=== PATIENT | male | born 2000 | race Caucasian/White ===

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

== ENCOUNTER 2018-03-09 14:36 | Emergency (ER) | payer OTHER ==
--- NOTE | 2018-03-09 15:45 | UC ---
Throat Pain/Nasal Giorgi HPI - HPI Summary HPI Summary: 17 yo male presents with throat pain, intermittent times of difficulty breathing , and sensation of food getting "stuck" and subsequent vomiting for the past week. He also reports fevers and 6/10 pain and a new headache. He cannot tolerate his salvia and has been spitting in a cup. Denies chest pain, abdominal pain. - History of Current Complaint Chief Complaint: UCGeneralIllness Stated Complaint: RASH Time Seen by Provider: 03/09/18 15:11 Hx Obtained From: Patient Onset/Duration: Gradual Onset Severity: Moderate Pain Intensity: 7 Pain Scale Used: 0-10 Numeric - Allergies/Home Medications Allergies/Adverse Reactions: Allergies Allergy/AdvReac Type Severity Reaction Status Date / Time No Known Allergies Allergy Verified 03/09/18 15:08 Home Medications: Home Medications Albuterol HFA INHALER* [Ventolin HFA Inhaler*] 2 puff INH Q4H PRN 03/09/18 [ History Confirmed 03/09/18] PMH/Surg Hx/FS Hx/Imm Hx Respiratory History: Asthma - Surgical History Surgical History: Yes Surgery Procedure, Year, and Place: T & A, appendectomy @ 6 years of age. skin grafts for "severe linares to feet" - Family History Known Family History: Positive: Cardiac Disease - father with WPW, Diabetes - Social History Lives: With Family Alcohol Use: None Substance Use Type: Marijuana Substance Use Comment - Amount & Last Used: "once in a while, but I don't go overboard with that." Smoking Status (MU): Never Smoked Tobacco - Immunization History Most Recent Influenza Vaccination: unsure Most Recent Pneumonia Vaccination: none Vaccination Up to Date: Yes Review of Systems Constitutional: Fever Skin: Negative Eyes: Negative ENT: Sore Throat Respiratory: Other - trouble breathing Cardiovascular: Negative Gastrointestinal: Vomiting, Other - dysphagia Genitourinary: Negative Neurovascular: Negative Neurological: Headache Psychological: Negative All Other Systems Reviewed And Are Negative: Yes Physical Exam - Summary Physical Exam Summary: GENERAL: Mild pain distress. Spitting in a cup and dry heaving intermittently. SKIN: No rashes, sores, lesions, or open wounds. HEENT: Head: AT/NC Eyes: EOM intact. Conjunctiva clear without inflammation or discharge. Ears: Hearing grossly normal. TMs intact, no bulging, erythema, or edema. Nose: Nasal mucosa pink and moist. NTTP maxillary and frontal sinus. Throat: Posterior oropharynx without exudates, erythema, or tonsillar enlargement. Uvula midline. NECK: FROM. Moderate TTP anterior neck with no appreciable LAD. CHEST: CTAB. No r/r/w. No accessory muscle use. Breathing comfortably CV: tachycardia Pulses intact. Brisk cap refill. ABDOMEN: Soft. NTTP. No distention or guarding. No organomegaly. No CVA tenderness. Bowel sounds present NEURO: Alert. PSYCH: Age appropriate behavior. Triage Information Reviewed: Yes Vital Signs: Initial Vital Signs Temp 99.0 F 03/09/18 15:03 Pulse 99 03/09/18 15:03 Resp 16 03/09/18 15:03 BP 114/70 03/09/18 15:03 Pulse Ox 100 03/09/18 15:03 Vital Signs Reviewed: Yes Throat Pain/Nasal Course/Dx - Course Course Of Treatment: Lateral neck XR: IMPRESSION: NORMAL STUDY. I spoke to Dr. Murrieta regarding this pt and we agreed that there is a suspicion for epiglottis or soft tissue neck infection. In the clinical course an IV was attempted x4 by the nursing staff and was unable to be obtain, therefore the antibiotics, streoids, and NS were not given. Pt was transferred to [facility] via ambulance and left in stable condition. I spoke and gave report to Dr. Ramirez in the ED regarding this pt. - Differential Dx/Diagnosis Provider Diagnoses: Dysphagia. Neck pain. Headache. Fever Discharge - Sign-Out/Discharge Documenting (check all that apply): Patient Departure - Discharge Plan Condition: Stable Disposition: TRANS HIGHER LVL OF CARE FAC Referrals: Garry Womack MD [Primary Care Provider] - - Billing Disposition and Condition Condition: STABLE Disposition: Trans Higher Lvl of Care Fac
[2018-03-09] MEDS ORDERED: NS 0.9% 1000 ML* 1,000 ML IV ONE (16:20)
--- NOTE | 2018-03-09 16:20 | RAD ---
INDICATION: Neck pain COMPARISON: None TECHNIQUE: A two-view soft tissue neck examination was performed FINDINGS: The osseous structures appear normal. The airways widely patent. The upper clivus and soft tissue elements about the neck are normal. IMPRESSION: NORMAL STUDY.
[2018-03-09] MEDS ORDERED: Dexamethasone IV* 4 MG/ML 5 ML VIAL (20 MG) IVPB ONE (16:21)
[2018-03-09] MEDS ORDERED: cefTRIAXone(*) 1 GM in NS 0.9% 50 ML* 50 ML IVPB ONE (16:22)
[2018-03-09 16:51] VITALS: BP 129/73
== END 2018-03-09 17:04 | disposition short-term general hospital (02) ==
LOC: UCEAST 14:36
DX: R13.10 Dysphagia, unspecified (principal); M54.2 Cervicalgia; R51 Headache; R50.9 Fever, unspecified; J45.909 Unspecified asthma, uncomplicated; Z82.49 Family history of ischemic heart disease and other diseases of the circulatory system
CPT/HCPCS: 70360; 99213; G0463; J0696; J1100

== ENCOUNTER 2018-03-09 17:26 | Emergency (ER) | payer OTHER ==
[2018-03-09] MEDS ORDERED: Ketorolac INJ* 30 MG/ML 1 ML VIAL IV PUSH ONE (20:46)
[2018-03-09] MEDS: NS 0.9% 1000 ML* 3,000 ML IV ONE ×3 (21:03→23:14)
--- NOTE | 2018-03-09 21:13 | ED ---
Throat Pain/Nasal Congestion - HPI Summary HPI Summary: This is kirit Castro documenting for attending Cachorro Whyte MD. This patient is a 17 year old M presenting to [facility] upon referral from [facility] with a chief complaint of sore throat since 1 week ago. The patient rates the pain 7/10 in severity. Symptoms aggravated by nothing. Symptoms alleviated by nothing. Patient reports headache, decreased appetite, decreased fluid intake, chills, pain to swallow, and dark yellow phlegm. Patient denies rash. The patient reports that he had a CXR taken at [facility]. - History of Current Complaint Chief Complaint: EDGeneral Time Seen by Provider: 03/09/18 20:39 Hx Obtained From: Patient Onset/Duration: Gradual Onset, Lasting Weeks - 1 week, Still Present Severity: Moderate Associated Signs And Symptoms: Positive: Dysphagia Cough: Sputum Appears - dark yellow - Allergies/Home Medications Allergies/Adverse Reactions: Allergies Allergy/AdvReac Type Severity Reaction Status Date / Time No Known Allergies Allergy Verified 03/09/18 15:08 PMH/Surg Hx/FS Hx/Imm Hx Endocrine/Hematology History: Denies: Hx Diabetes, Hx Thyroid Disease Cardiovascular History: Reports: Hx Syncope Denies: Hx Hypertension Respiratory History: Reports: Hx Asthma - with rescue inhaler Denies: Hx Chronic Obstructive Pulmonary Disease (COPD) GI History: Denies: Hx Ulcer Opthamlomology History: Denies: Hx Legally Blind EENT History: Denies: Hx Deafness - Surgical History Surgery Procedure, Year, and Place: T & A, appendectomy @ 6 years of age. skin grafts for "severe linares to feet" Infectious Disease History: No Infectious Disease History: Denies: Hx Clostridium Difficile, Hx Hepatitis, Hx Human Immunodeficiency Virus (HIV), Hx of Known/Suspected MRSA - suspected, was actually spider bite, Hx Tuberculosis, History Other Infectious Disease, Traveled Outside the [place] in Last 30 Days - Family History Known Family History: Positive: Cardiac Disease - father with WPW, Diabetes - Social History Alcohol Use: None Substance Use Type: Reports: Marijuana Substance Use Comment - Amount & Last Used: "once in a while, but I don't go overboard with that." Smoking Status (MU): Never Smoked Tobacco Review of Systems Positive: Chills Positive: Sore Throat Negative: Rash Positive: Headache All Other Systems Reviewed And Are Negative: Yes Physical Exam - Summary Physical Exam Summary: Appearance: Well-appearing, Well-nourished, lying in bed comfortably Skin: Warm, dry, no obvious rash Eyes: sclera anicteric, no conjunctival pallor ENT: mucous membranes moist, pharynx appears normal Neck: Supple, nontender Respiratory: Clear to auscultation, no signs of respiratory distress Cardiovascular: Normal S1, S2. No murmurs. Normal distal pulses in tibial and radial bilaterally. Abdomen: Soft, nontender, normal active bowel sounds present Musculoskeletal: Normal, Strength/ROM Intact Neurological: A&Ox3, awake and alert, mentation is normal, speech is fluent and appropriate Psychiatric: affect is normal, does not appear anxious or depressed Triage Information Reviewed: Yes Vital Signs On Initial Exam: Initial Vitals Temp Pulse Resp BP Pulse Ox 100.4 F 95 16 110/64 97 03/09/18 17:28 03/09/18 17:28 03/09/18 17:28 03/09/18 17:28 03/09/18 17:28 Vital Signs Reviewed: Yes Diagnostics - Vital Signs Vital Signs Temp Pulse Resp BP Pulse Ox 03/09/18 20:18 98 F 94 17 131/80 97 03/09/18 18:45 100.9 F 88 20 136/84 100 03/09/18 17:28 100.4 F 95 16 110/64 97 - Laboratory Lab Results: Lab Results 03/09/18 Range/Units 20:11 Group A Strep Rapid Negative (Negative) Result Diagrams: 03/09/18 21:18 03/09/18 21:18 Lab Statement: Any lab studies that have been ordered have been reviewed, and results considered in the medical decision making process. - CT CT Neck with IV Contrast CT Interpretation: No Acute Changes - Impression: 1) no evidence of a tonsillar or peritonsillar abscess. Thickening of the left tonsillar pillar compare to the right. No abnormal enhancement within th tonsil is seen. Increased in the mucosal thickening in the posterior aspect of the nasopharynx most likely representing adenoidal tissue. No submucosal abnormality. No drainable abscess. 2) Prominent lymph nodes located in 2A bilaterally and 2B on the right side. These are not necrotic. Most likely reactive. Dr. Whyte has reviewed this report. CT Interpretation Completed By: Radiologist Re-Evaluation - Re-Evaluation First Eval Re-Evaluation Time: 01:47 Change: Improved - This is a 17-year-old man, generally healthy, who presents with severe pharyngitic symptoms. He was referred in from an urgent care center because of the severity of symptoms. I obtained a CT scan of the soft tissues of his neck and there is no sign of an abscess or other serious infectious process. He is feeling better with respect of his pain and has been taking liquids orally. His white blood cell count is quite high and landed upon him on antibiotics in case this is bacterial infection. I decided to hold off on steroid medication. Discharge - Sign-Out/Discharge Documenting (check all that apply): Patient Departure - Discharge Plan Condition: Improved Disposition: HOME Prescriptions: Amoxicillin/Clavulanate TAB* [Augmentin TAB 875*] 875 mg PO BID #20 tab Magic Mouth Was-DEISY/MAAL/LIDO* 5 ml SWISH SWAL QID PRN #120 ml PRN Reason: Pain Oxycodone HCl/Acetaminophen [Percocet 5-325 mg Tablet] 1 each PO Q4HR PRN #10 tablet MDD 4 tabs PRN Reason: Pain Patient Education Materials: Pharyngitis (ED) Referrals: Garry Womack MD [Primary Care Provider] -
[2018-03-09 21:26] LABS: Hematocrit 44 % (42-52); Mean Corpuscular HGB Conc 34 g/dl (31-36); Mean Corpuscular Hemoglobin 29 pg (27-31); Mean Corpuscular Volume 86 fL (80-94); Mean Platelet Volume 8.4 um3 (7.4-10.4); Platelet Count 255 10^3/ul (150-450); Red Cell Distribution Width 13 % (10.5-15); White Blood Count 23.3 10^3/ul (3.5-10.8)
[2018-03-09 21:51] LABS: EGFR Non-African American 88.1 (>60)
[2018-03-09 21:53] LABS: ABS Basophils 0 10^3/ul (0-0.2); ABS Eosinophils 0 10^3/ul (0-0.6); ABS Lymphocytes 1.9 10^3/ul (1.0-4.8); ABS Monocytes 2.3 10^3/ul (0-0.8); ABS Neutrophils 19.2 10^3/ul (1.5-7.7); ABS Nucleated RBC 0.1 10^3/ul; Eosinophil % 0 % (0-6); Nucleated Red Blood Cells % 0.3
[2018-03-09] MEDS ORDERED: Iohexol 300* (CONTRAST) 10 ML SDV IV ONE (22:24)
[2018-03-10] MEDS ORDERED: cefTRIAXone(*) 1 GM in NS 0.9% 50 ML* 50 ML IVPB ONE (00:03)
[2018-03-10] MEDS ORDERED: cefTRIAXone(*) 1 GM ADVAN/BAG ONE (00:22)
[2018-03-10] MEDS ORDERED: oxyCODONE/Acetamin 5/325 MG* TAB PO ONE (01:54)
[2018-03-10 02:17] VITALS: BP 136/85
--- NOTE | 2018-03-10 07:56 | RAD ---
INDICATION: Severe sore throat. Question abscess. COMPARISON: March 09, 2018 radiographs. TECHNIQUE: Multidetector CT images skull base to lung apices with 50 mL Omnipaque 300 IV contrast. Multiplanar reformation. REPORT: Upper normal 1.2 cm short axis diameter bilateral jugulodigastric lymph nodes. Negative for lymphadenopathy. Unremarkable parotid, submandibular, and thyroid glands. Grossly symmetric thickening of the posterior aspect of the nasopharynx with obscuration of the fossa of Rosenmuller most consistent with adenoidal hypertrophy. Otherwise unremarkable pharyngeal mucosal space contours as well as the epiglottis and false and true vocal cords and subglottic airway. Symmetric parapharyngeal fat. Unremarkable orbital contents. Clear paranasal sinuses and mastoid air spaces. No abnormal gas collections or abscess evident. Normal variant residual thymic tissue at the partially visualized anterior mediastinum. Negative for suspicious osseous lesions. IMPRESSION: #. Adenoidal hypertrophy. #. No phlegmon or abscess collection evident.
== END 2018-03-10 02:08 | disposition home or self-care (01) ==
LOC: ED 17:26
DX: J02.9 Acute pharyngitis, unspecified (principal); D72.829 Elevated white blood cell count, unspecified; R51 Headache; R63.0 Anorexia; R09.3 Abnormal sputum
CPT/HCPCS: 36415; 70491; 80053; 83605; 85025; 86308; 87651; 96365; 96366; 96375; 99284; A9270-GY; J0696; J1885; Q9967

== ENCOUNTER 2019-05-20 10:45 | Emergency (ER) | payer SELFPAY ==
[2019-05-20 10:53] VITALS: BP 123/95
== END 2019-05-20 13:18 | disposition left against medical advice (07) ==
LOC: ED 10:45
DX: K08.89 Other specified disorders of teeth and supporting structures (principal); R51 Headache; Z53.21 Procedure and treatment not carried out due to patient leaving prior to being seen by health care provider

== ENCOUNTER 2019-05-21 15:57 | Emergency (ER) | payer SELFPAY ==
[2019-05-21 16:35] VITALS: BP 104/82
--- NOTE | 2019-05-21 16:41 | UC ---
Dental HPI - HPI Summary HPI Summary: 18 yo male presents with left upper tooth pain. He tells me that his wisdom teeth are coming in and the left upper tooth has been painful for the past 2-3 weeks. Over the last week he has noticed increased pain, swelling, and has occasional purulent drainage from the site. He has felt hot/cold, but has not taken his temperature. He has a dentist, but states his insurance is not active for another 45 days and he cannot make an appointment. He is tolerating po well. - History of Current Complaint Chief Complaint: UCDentalProblem Stated Complaint: DENTAL COMPLAINT Time Seen by Provider: 05/21/19 16:40 Hx Obtained From: Patient Onset/Duration: Gradual Onset Severity: Severe Pain Intensity: 8 Pain Scale Used: 0-10 Numeric - Allergies/Home Medications Allergies/Adverse Reactions: Allergies Allergy/AdvReac Type Severity Reaction Status Date / Time No Known Allergies Allergy Verified 05/20/19 10:53 PMH/Surg Hx/FS Hx/Imm Hx - Additional Past Medical History Additional PMH: None - Surgical History Surgical History: Yes Surgery Procedure, Year, and Place: T & A, appendectomy @ 6 years of age. skin grafts for "severe linares to feet" - Family History Known Family History: Positive: Cardiac Disease - father with WPW, Diabetes - Social History Occupation: Employed Full-time Lives: With Family Alcohol Use: Rare Substance Use Type: Marijuana Substance Use Comment - Amount & Last Used: occasionally Smoking Status (MU): Current Every Day Smoker Type: Cigarettes, Smokeless Tobacco - Immunization History Most Recent Influenza Vaccination: unsure Most Recent Pneumonia Vaccination: none Vaccination Up to Date: Yes Review of Systems All Other Systems Reviewed And Are Negative: No Constitutional: Positive: Negative Skin: Positive: Negative Eyes: Positive: Negative ENT: Positive: Dental Pain Respiratory: Positive: Negative Cardiovascular: Positive: Negative Neurovascular: Positive: Negative Neurological: Positive: Negative Psychological: Positive: Negative Physical Exam - Summary Physical Exam Summary: GENERAL: NAD. WDWN. No pain distress. SKIN: No rashes, sores, lesions, or open wounds. HEENT: Head: Mild left upper cheek edema. Ears: Hearing grossly normal. TMs intact, no bulging, erythema, or edema. Nose: Nasal mucosa pink and moist. NTTP maxillary and frontal sinus. Throat: Posterior oropharynx without exudates, erythema, or tonsillar enlargement. Uvula midline. NECK: Supple. Nontender. No lymphadenopathy. CHEST: CTAB. No accessory muscle use. Breathing comfortably and in no distress. CV: RRR. Without m/r/g. Pulses intact. Cap refill <2seconds NEURO: Alert. PSYCH: Age appropriate behavior. Triage Information Reviewed: Yes Vital Signs: Initial Vital Signs Temp 96.7 F 05/21/19 16:05 Pulse 97 05/21/19 16:05 Resp 18 05/21/19 16:05 BP 95/59 05/21/19 16:05 Pulse Ox 98 05/21/19 16:05 Vital Signs Reviewed: Yes Dental: Positive: Percussion Tenderness @ - Tooth #16, Gross Decay/Caries @ - throughout, Cellulitis @ - Tooth #16. Negative: Dental Fracture @, Abscess @, Cervical Lymphadenopathy, Bleeding Dental Complaint Course/Dx - Course Course Of Treatment: Tooth #16 cellulitis/infection - Differential Dx/Diagnosis Provider Diagnosis: Dental infection Discharge ED - Sign-Out/Discharge Documenting (check all that apply): Patient Departure All imaging exams completed and their final reports reviewed: No Studies - Discharge Plan Condition: Stable Disposition: HOME Prescriptions: Amoxicillin/Clavulanate TAB* [Augmentin TAB 875*] 875 mg PO BID #14 tab Patient Education Materials: Dental Abscess (ED) Forms: *Work Release Referrals: Garry Womack MD [Primary Care Provider] - Additional Instructions: If you develop a fever, shortness of breath, chest pain, new or worsening symptoms - please call your PCP or go to the ED immediately. - Billing Disposition and Condition Condition: STABLE Disposition: Home
== END 2019-05-21 16:59 | disposition home or self-care (01) ==
LOC: UCEAST 15:57
DX: K04.7 Periapical abscess without sinus (principal); F17.210 Nicotine dependence, cigarettes, uncomplicated
CPT/HCPCS: 99212; G0463

== ENCOUNTER 2019-05-22 13:29 | Emergency (ER) | payer SELFPAY ==
--- NOTE | 2019-05-22 14:15 | ED ---
Throat Pain/Nasal Congestion - HPI Summary HPI Summary: Pt. is a 18 y.o male who presents to the ER for dental pain x several days. Pt. states his back top left wisdom tooth has been erupting and very painful. Pt. seen at yesterday and rx augmentin. Has been taking 800mg tablets motrin without improvement. Pt. also notes he has been having acid refulx and N/V. Sxs are mild in severity. No current modifying factors .No past medical hx. - History of Current Complaint Chief Complaint: EDDentalPain Time Seen by Provider: 05/22/19 14:08 Hx Obtained From: Patient - Allergies/Home Medications Allergies/Adverse Reactions: Allergies Allergy/AdvReac Type Severity Reaction Status Date / Time No Known Allergies Allergy Verified 05/20/19 10:53 PMH/Surg Hx/FS Hx/Imm Hx Previously Healthy: Yes Endocrine/Hematology History: Denies: Hx Diabetes, Hx Thyroid Disease Cardiovascular History: Reports: Hx Syncope Denies: Hx Hypertension Respiratory History: Reports: Hx Asthma - with rescue inhaler Denies: Hx Chronic Obstructive Pulmonary Disease (COPD) GI History: Denies: Hx Ulcer Sensory History: Denies: Hx Legally Blind, Hx Deafness Opthamlomology History: Denies: Hx Legally Blind - Surgical History Surgery Procedure, Year, and Place: T & A, appendectomy @ 6 years of age. skin grafts for "severe linares to feet" Infectious Disease History: No Infectious Disease History: Denies: Hx Clostridium Difficile, Hx Hepatitis, Hx Human Immunodeficiency Virus (HIV), Hx of Known/Suspected MRSA - suspected, was actually spider bite, Hx Tuberculosis, History Other Infectious Disease, Traveled Outside the [place] in Last 30 Days - Family History Known Family History: Positive: Cardiac Disease - father with WPW, Diabetes, Non -Contributory - Social History Occupation: Employed Full-time Lives: With Family Alcohol Use: Rare Substance Use Type: Reports: Marijuana Substance Use Comment - Amount & Last Used: occasionally Smoking Status (MU): Current Every Day Smoker Type: Cigarettes, Smokeless Tobacco Review of Systems Constitutional: Negative Negative: Fever, Chills Positive: Dental Pain Positive: Abdominal Pain, Nausea All Other Systems Reviewed And Are Negative: Yes Physical Exam Triage Information Reviewed: Yes Vital Signs On Initial Exam: Initial Vitals Temp Pulse Resp BP Pulse Ox 97.7 F 75 18 110/77 98 05/22/19 13:33 05/22/19 13:33 05/22/19 13:33 05/22/19 13:33 05/22/19 13:33 Vital Signs Reviewed: Yes Appearance: Positive: Well-Appearing - Pt. sitting on chair in NAD. SO present. Skin: Positive: Warm, Dry Head/Face: Positive: Temporal Artery Tenderness Eyes: Positive: Normal, EOMI ENT: Positive: Pharynx normal. Negative: Tonsillar swelling, Tonsillar exudate Dental: Positive: Other - Pain on palpation to left top back gingiva. No obvious abscess. No facial edema. No swelling under tongue or submandibular edema. Neck: Positive: Supple, Nontender, No Lymphadenopathy Neurological: Positive: Normal, CN Intact II-III Psychiatric: Positive: Affect/Mood Appropriate Procedures - Sedation Patient Received Moderate/Deep Sedation with Procedure: No Diagnostics - Vital Signs Vital Signs Temp Pulse Resp BP Pulse Ox 05/22/19 13:33 97.7 F 75 18 110/77 98 - Laboratory Lab Statement: Any lab studies that have been ordered have been reviewed, and results considered in the medical decision making process. EENT Course/Dx - Course Course Of Treatment: Pt. with ongoing dental pain. Afebrile. Exam unremarkable. Suspect epigastric n/v secondary to motrin advised to dc. MANAGER LAB reviewed. Will rx a few tablets of ultram. To continue antibx. Strongly advised to f.u with a dentist noemí. Provided with list. Will return to er if sxs change or worsen. Pt. understands and agrees with plan. - Differential Diagnoses Differential Diagnoses: Dental Abscess, Dental Caries - Diagnoses Provider Diagnoses: Dentalgia Discharge ED - Sign-Out/Discharge Documenting (check all that apply): Patient Departure - Discharge Plan Condition: Good Disposition: HOME Prescriptions: Famotidine [Pepcid] 40 mg PO DAILY #14 tablet traMADol TAB* [Ultram*] 50 mg PO Q6HR PRN 8 Days #8 tab MDD 4 PRN Reason: Pain - Mild Patient Education Materials: Toothache (ED) Forms: *Work Release Referrals: Garry Womack MD [Primary Care Provider] - Additional Instructions: Please see a dentist as soon as possible Continue antibiotic as directed Pain medication as directed Avoid ibuprofen Can take an over the counter probiotic Return to ER if symptoms change or worsen - Billing Disposition and Condition Condition: GOOD Disposition: Home - Attestation Statements Provider Attestation: I was available for consultation for this patient. I did not evaluate the patient, or participate in any medical decision making or disposition decisions unless I am specifically named in the chart as having consulted on the patient. If I have consulted on the patient, please see my own ED note on the patient encounter. Krissy Liriano MD
[2019-05-22 15:08] VITALS: BP 127/77
== END 2019-05-22 15:10 | disposition home or self-care (01) ==
LOC: ED 13:29
DX: K08.89 Other specified disorders of teeth and supporting structures (principal); R10.13 Epigastric pain; R11.2 Nausea with vomiting, unspecified; J45.909 Unspecified asthma, uncomplicated; F17.210 Nicotine dependence, cigarettes, uncomplicated
CPT/HCPCS: 99281

== ENCOUNTER 2019-06-26 10:26 | Emergency (ER) | payer MEDICAID ==
[2019-06-26 12:32] LABS: ABS Eosinophils 0.1 10^3/ul (0-0.6); ABS Lymphocytes 2.6 10^3/ul (1.0-4.8); ABS Neutrophils 6.8 10^3/ul (1.5-7.7); Eosinophil % 0.9 %; Hematocrit 45 % (42-52); Hemoglobin 15.3 g/dL (14.0-18.0); Lymphocyte % 24.8 %; Mean Corpuscular HGB Conc 34 g/dL (31-36); Mean Corpuscular Hemoglobin 29 pg (27-31); Mean Corpuscular Volume 86 fL (80-94); Mean Platelet Volume 8.2 fL (7.4-10.4); Nucleated Red Blood Cells % 0.2; Platelet Count 269 10^3/uL (150-450); Red Blood Count 5.26 10^6 /uL (4.18-5.48); Red Cell Distribution Width 14 % (10-15); White Blood Count 10.5 10^3/uL (3.5-10.8)
[2019-06-26] MEDS ORDERED: guaiFENesin/CODIENE 100mg/10mg 5 ML UDC PO ONE (12:45)
[2019-06-26] MEDS ORDERED: Albuterol HFA INHALER* 8 gm MDI INH ONE (12:45)
[2019-06-26] MEDS ORDERED: Benzonatate CAP* 100 MG PO ONE (12:46)
[2019-06-26 12:55] LABS: Albumin 4.5 g/dL (3.2-5.2); BUN/Creatinine Ratio 12.2 (8-20); Calcium 9.8 mg/dL (8.6-10.3); EGFR African American 130.2 (>60); EGFR Non-African American 107.6 (>60); Potassium 4.1 mmol/L (3.5-5.0); Total Protein 7.5 g/dL (6.4-8.9)
[2019-06-26 12:56] LABS: Albumin/Globulin Ratio 1.5 (1-3); Total Bilirubin 0.6 mg/dL (0.2-1.0)
[2019-06-26 13:14] LABS: Influenza A Molecular NEGATIVE (Negative); Influenza B Molecular NEGATIVE (Negative)
[2019-06-26 14:18] VITALS: BP 111/74
--- NOTE | 2019-06-26 16:58 | ED ---
Influenza-Like Illness - HPI Summary HPI Summary: This patient is a 18-year-old otherwise healthy male smoker presenting to the ED with flulike symptoms 3 days. Patient states he is fatigued, coughing, congestion, with head cold symptoms. He has been taking NyQuil and DayQuil without relief. He denies getting the flu shot. He states he is a smoker, however has been unable to smoke due to his cough. Endorses sweats and chills, unknown fevers at home. Noone else in the home is sick. Denies having the flu shot. No current modifying factors. - History of Current Complaint Chief Complaint: EDFluSymptoms Time Seen by Provider: 06/26/19 12:07 Hx Obtained From: Patient Onset/Duration: Sudden Onset Severity: Moderate Associated Signs & Symptoms: Fever, F/C, Cough, Sore Throat, Nasal Congestion - Risk Factors Influenza Risk Factors: Negative - Allergy/Home Medications Allergies/Adverse Reactions: Allergies Allergy/AdvReac Type Severity Reaction Status Date / Time No Known Allergies Allergy Verified 05/20/19 10:53 PMH/Surg Hx/FS Hx/Imm Hx Previously Healthy: Yes Endocrine/Hematology History: Denies: Hx Diabetes, Hx Thyroid Disease Cardiovascular History: Reports: Hx Syncope Denies: Hx Hypertension Respiratory History: Reports: Hx Asthma - with rescue inhaler Denies: Hx Chronic Obstructive Pulmonary Disease (COPD) GI History: Denies: Hx Ulcer Sensory History: Denies: Hx Legally Blind, Hx Deafness Opthamlomology History: Denies: Hx Legally Blind - Surgical History Surgery Procedure, Year, and Place: T & A, appendectomy @ 6 years of age. skin grafts for "severe linares to feet" - Immunization History Hx Pertussis Vaccination: No Immunizations Up to Date: Yes Infectious Disease History: No Infectious Disease History: Denies: Hx Clostridium Difficile, Hx Hepatitis, Hx Human Immunodeficiency Virus (HIV), Hx of Known/Suspected MRSA - suspected, was actually spider bite, Hx Tuberculosis, History Other Infectious Disease, Traveled Outside the [place] in Last 30 Days - Family History Known Family History: Positive: Cardiac Disease - father with WPW, Diabetes, Non -Contributory - Social History Occupation: Unemployed Lives: With Family Alcohol Use: Rare Hx Substance Use: Yes Substance Use Type: Reports: Marijuana Substance Use Comment - Amount & Last Used: occasionally Smoking Status (MU): Current Every Day Smoker Type: Cigarettes, Smokeless Tobacco Review of Systems Positive: Fever, Chills, Fatigue, Skin Diaphoresis Negative: Blurred Vision, Diplopia Negative: Dental Pain, Sore Throat, Ear Ache Negative: Chest Pain Positive: Shortness Of Breath, Cough Negative: Abdominal Pain, Vomiting, Diarrhea, Nausea Genitourinary: Negative Positive: no symptoms reported, see HPI Negative: Arthralgia, Myalgia Neurological: Negative All Other Systems Reviewed And Are Negative: Yes Physical Exam Triage Information Reviewed: Yes Vital Signs On Initial Exam: Initial Vitals Temp Pulse Resp BP Pulse Ox 97.3 F 67 18 166/91 98 06/26/19 10:33 06/26/19 10:33 06/26/19 10:33 06/26/19 10:33 06/26/19 10:33 Vital Signs Reviewed: Yes Appearance: Positive: Well-Appearing Skin: Positive: Diaphoretic ENT: Positive: Normal ENT inspection, Pharynx normal Neck: Positive: Supple, No Lymphadenopathy Respiratory/Lung Sounds: Positive: Wheezes. Negative: Unable to speak in full sentences Cardiovascular: Positive: RRR, Pulses are Symmetrical in both Upper and Lower Extremities Musculoskeletal: Positive: Normal, Strength/ROM Intact Neurological: Positive: Speech Normal Psychiatric: Positive: Normal, Affect/Mood Appropriate AVPU Assessment: Alert Procedures - Sedation Patient Received Moderate/Deep Sedation with Procedure: No Diagnostics - Vital Signs Vital Signs Temp Pulse Resp BP Pulse Ox 06/26/19 14:17 98.7 F 86 20 111/74 96 06/26/19 14:14 84 111/74 97 06/26/19 14:00 73 95 06/26/19 13:45 73 123/96 99 06/26/19 13:15 59 117/80 97 06/26/19 13:01 80 96 06/26/19 12:45 63 139/81 96 06/26/19 12:44 61 97 06/26/19 10:33 97.3 F 67 18 166/91 98 - Laboratory Lab Results: Lab Results 06/26/19 06/26/19 06/26/19 Range/Units 12:09 12:17 12:20 WBC 10.5 (3.5-10.8) 10^3/uL RBC 5.26 (4.18-5.48) 10^6 /uL Hgb 15.3 (14.0-18.0) g/dL Hct 45 (42-52) % MCV 86 (80-94) fL MCH 29 (27-31) pg MCHC 34 (31-36) g/dL RDW 14 (10-15) % Plt Count 269 (150-450) 10^3/uL MPV 8.2 (7.4-10.4) fL Neut % (Auto) 64.9 % Lymph % (Auto) 24.8 % [place] % (Auto) 9.1 % Eos % (Auto) 0.9 % Baso % (Auto) 0.3 % Absolute Neuts (auto) 6.8 (1.5-7.7) 10^3/ul Absolute Lymphs (auto) 2.6 (1.0-4.8) 10^3/ul Absolute Monos (auto) 1.0 H (0-0.8) 10^3/ul Absolute Eos (auto) 0.1 (0-0.6) 10^3/ul Absolute Basos (auto) 0.0 (0-0.2) 10^3/ul Absolute Nucleated RBC 0.0 10^3/ul Nucleated RBC % 0.2 Sodium 139 (135-145) mmol/L Potassium 4.1 (3.5-5.0) mmol/L Chloride 106 (101-111) mmol/L Carbon Dioxide 26 (22-32) mmol/L Anion Gap 7 (2-11) mmol/L BUN 11 (6-24) mg/dL Creatinine 0.90 (0.67-1.17) mg/dL Est GFR ( Amer) 130.2 (>60) Est GFR (Non-Af Amer) 107.6 (>60) BUN/Creatinine Ratio 12.2 (8-20) Glucose 89 (70-100) mg/dL Calcium 9.8 (8.6-10.3) mg/dL Total Bilirubin 0.60 (0.2-1.0) mg/dL AST 19 (13-39) U/L ALT 27 (7-52) U/L Alkaline Phosphatase 63 (34-104) U/L Total Protein 7.5 (6.4-8.9) g/dL Albumin 4.5 (3.2-5.2) g/dL Globulin 3.0 (2-4) g/dL Albumin/Globulin Ratio 1.5 (1-3) Influenza A (Rapid) Negative (Negative) Influenza B (Rapid) Negative (Negative) Result Diagrams: 06/26/19 12:17 06/26/19 12:20 Lab Statement: Any lab studies that have been ordered have been reviewed, and results considered in the medical decision making process. Flu Symptom Course/Dx - Course Course Of Treatment: On physical examination, patient appears somewhat diaphoretic. He states he has been coughing frequently which causes him to have diaphoresis. He is also having chills. Denies any body aches. On physical examination, patient has wheezing bilaterally, with no rhonchorous sounds. Cough noted on exam. No maxillary sinus tenderness. No cervical LAD. No pharyngeal erythema and no bilateral tonsillar exudates. Denies any production with the cough. Vital signs are stable on arrival and patient is afebrile. Labs obtained which were WNL. Flu negative. Patient is given Robitussin with codeine as well as Tessalon. This with good relief. He states the cough has reduced. He is given a note for work, diagnosed with cold-like symptoms as well as viral syndrome and is prescribed Tessalon for cough. He is also given albuterol inhaler in the ED. This also with improved symptoms of cough and congestion. - Diagnoses Differential Diagnosis/HQI/PQRI: Positive: Bronchitis, Influenza, Upper Respiratory Infection Provider Diagnoses: Upper respiratory infection Discharge ED - Sign-Out/Discharge Documenting (check all that apply): Patient Departure - Discharge Plan Condition: Stable Disposition: HOME Prescriptions: Benzonatate CAP* [Tessalon CAP*] 100 mg PO TID #21 cap Benzonatate CAP* [Tessalon CAP*] 100 mg PO TID #21 cap Patient Education Materials: Viral Syndrome (ED), Cold Symptoms (ED) Forms: *Work Release Referrals: No Primary Care Phys,NOPCP [Primary Care Provider] - Additional Instructions: Tessalon three times daily as needed for cough Rest Drink plenty of fluids Humidifier in the home will help DO NOT SMOKE Cough drops Dayquil and Nyquil or other robitussin medications may help DO NOT TAKE TYLENOL WHILE TAKING THIS MEDICATION OFF 2 DAYS OF WORK - Billing Disposition and Condition Condition: STABLE Disposition: Home - Attestation Statements Provider Attestation: pt seen by midlevel provider independently, based on their assessment, it was not necessary to present the case to me but I was available for consultation. I did not form a physician-patient relationship with the patient. The chart however, has been reviewed. am signing this note strictly in an administrative capacity.
== END 2019-06-26 14:15 | disposition home or self-care (01) ==
LOC: ED 10:26
DX: J06.9 Acute upper respiratory infection, unspecified (principal); R50.9 Fever, unspecified; R05 Cough; R55 Syncope and collapse; F17.210 Nicotine dependence, cigarettes, uncomplicated; R09.81 Nasal congestion
CPT/HCPCS: 36415; 71046; 80053; 85025; 99283; A9270-GY

== ENCOUNTER 2019-10-16 11:09 | Emergency (ER) | payer BC, MEDICAID, OTHER ==
[2019-10-16 11:40] LABS: Influenza B Molecular POSITIVE (Negative)
[2019-10-16] MEDS ORDERED: Ondansetron ODT TAB* 4 MG PO ONE (11:57)
[2019-10-16] MEDS ORDERED: Acetaminophen TAB* 325 MG PO ONE (11:57)
[2019-10-16 12:25] LABS: Urine Appearance Cloudy; Urine Bilirubin Negative (Negative); Urine Blood Negative (Negative); Urine Color Amber; Urine Glucose Negative (Negative); Urine Ketones Trace (Negative); Urine Nitrite Negative (Negative); Urine Protein 1+(30 mg/dL) (Negative); Urine Specific Gravity 1.028 (1.010-1.030); Urine Urobilinogen Negative (Negative)
[2019-10-16 12:29] LABS: Urine Bacteria Absent (Absent); Urine Red Blood Cell Trace(0-2/hpf) (Absent); Urine Squamous Epithelial Cell Present (Absent); Urine White Blood Cell Trace(0-5/hpf) (Absent)
--- NOTE | 2019-10-16 12:44 | ED ---
Influenza-Like Illness - HPI Summary HPI Summary: Patient is a 18-year-old male who presents emergency department for body aches, chills, nausea, vomiting and dysuria times several days. No past medical history. Patient denies concern for STDs and denies penile discharge. Symptoms are moderate in severity. No current modifying factors. - History of Current Complaint Chief Complaint: EDGeneral Time Seen by Provider: 10/16/19 11:32 Hx Obtained From: Patient - Allergy/Home Medications Allergies/Adverse Reactions: Allergies Allergy/AdvReac Type Severity Reaction Status Date / Time No Known Allergies Allergy Verified 10/16/19 11:22 Home Medications: Home Medications Benzonatate CAP* [Tessalon CAP*] 100 mg PO TID #21 cap 06/26/19 [Rx] Benzonatate CAP* [Tessalon CAP*] 100 mg PO TID #21 cap 06/26/19 [Rx] Ondansetron ODT TAB* [Zofran 4 MG Odt TAB*] 4 mg PO Q6H PRN #12 tab.odt [Rx] Azithromycin TAB* [Zithromax TAB (Z-FAVIAN) 250 mg #6 tabs] 4 tab PO ONCE #4 each 10/17/19 [Rx] PMH/Surg Hx/FS Hx/Imm Hx Previously Healthy: Yes Endocrine/Hematology History: Denies: Hx Diabetes, Hx Thyroid Disease Cardiovascular History: Reports: Hx Syncope Denies: Hx Hypertension Respiratory History: Reports: Hx Asthma - with rescue inhaler Denies: Hx Chronic Obstructive Pulmonary Disease (COPD) GI History: Denies: Hx Ulcer Sensory History: Denies: Hx Legally Blind, Hx Deafness Opthamlomology History: Denies: Hx Legally Blind - Surgical History Surgery Procedure, Year, and Place: T & A, appendectomy @ 6 years of age. skin grafts for "severe linares to feet" Infectious Disease History: No Infectious Disease History: Denies: Hx Clostridium Difficile, Hx Hepatitis, Hx Human Immunodeficiency Virus (HIV), Hx of Known/Suspected MRSA - suspected, was actually spider bite, Hx Tuberculosis, History Other Infectious Disease, Traveled Outside the [place] in Last 30 Days - Family History Known Family History: Positive: Cardiac Disease - father with WPW, Diabetes, Non -Contributory - Social History Occupation: Employed Full-time Lives: With Family Alcohol Use: Rare Hx Substance Use: Yes Substance Use Type: Reports: Marijuana Substance Use Comment - Amount & Last Used: occasionally Smoking Status (MU): Current Every Day Smoker Type: Cigarettes, Smokeless Tobacco Review of Systems Positive: Fever, Chills ENT: Negative Cardiovascular: Negative Respiratory: Negative Negative: Cough Positive: Abdominal Pain, Vomiting, Nausea Positive: dysuria, flank pain Positive: Myalgia Skin: Negative Neurological/Mental Status: Negative All Other Systems Reviewed And Are Negative: Yes Physical Exam Triage Information Reviewed: Yes Vital Signs On Initial Exam: Initial Vitals Temp Pulse Resp BP Pulse Ox 98.5 F 110 18 154/78 97 10/16/19 11:19 10/16/19 11:19 10/16/19 11:19 10/16/19 11:19 10/16/19 11:19 Vital Signs Reviewed: Yes Appearance: Positive: Well-Appearing - Pt. sitting up in bed, appears uncomfortable but nontoxic. Skin: Positive: Warm, Dry Head/Face: Positive: Normal Head/Face Inspection Eyes: Positive: Normal, EOMI, NEERU Neck: Positive: Supple, Nontender. Negative: Nuchal Rigidity Respiratory/Lung Sounds: Positive: Clear to Auscultation, Breath Sounds Present Cardiovascular: Positive: Normal, RRR Abdomen Description: Positive: CVA Tenderness (R), CVA Tenderness (L), Other: - Abd. is soft with mild diffuse tenderness. Musculoskeletal: Positive: Normal, Strength/ROM Intact, Other - Diffuse muscular pain to palpation. Neurological: Positive: Normal, CN Intact II-III Psychiatric: Positive: Affect/Mood Appropriate Procedures - Sedation Patient Received Moderate/Deep Sedation with Procedure: No Diagnostics - Vital Signs Vital Signs Temp Pulse Resp BP Pulse Ox 10/16/19 11:19 98.5 F 110 18 154/78 97 - Laboratory Lab Results: Lab Results 10/16/19 10/16/19 10/16/19 Range/Units 11:24 12:00 12:00 Urine Color Anat Urine Appearance Cloudy Urine pH 5.0 (5-9) Ur Specific [place] 1.028 (1.010-1.030) Urine Protein 1+(30 mg/dl) A (Negative) Urine Ketones Trace A (Negative) Urine Blood Negative (Negative) Urine Nitrate Negative (Negative) Urine Bilirubin Negative (Negative) Urine Urobilinogen Negative (Negative) Ur Leukocyte Esterase Negative (Negative) Urine WBC (Auto) Trace(0-5/hpf) (Absent) Urine RBC (Auto) Trace(0-2/hpf) (Absent) Ur Squamous Epith Cells Present A (Absent) Urine Bacteria Absent (Absent) Urine Glucose Negative (Negative) C.trachomatis (Amp Det) Pending Influenza A (Rapid) Not Reportable Influenza B (Rapid) Positive H (Negative) N.gonorrhoeae (Amp Det) Pending Lab Statement: Any lab studies that have been ordered have been reviewed, and results considered in the medical decision making process. Flu Symptom Course/Dx - Course Course Of Treatment: Pt. with above complaints. Afebrile. Pt. notes ongoing N/V and diffuse abd. pain. Hx of appendectomy. Benign exam. Is positive for the flu today. He also notes dysuria. U/A negative for infection. Pt. tolerating po fluids in ed without vomiting. Pending STI testing. Offered pt. prophylactic treatment in ed but pt. would like to wait for culture results before treatment. Rx for zofran. WIll fu with pcp. Tylenol or motrin as directed. WIll return to er if sxs change or worsen. - Diagnoses Provider Diagnoses: Dysuria, Influenza, Nausea & vomiting Discharge ED - Sign-Out/Discharge Documenting (check all that apply): Patient Departure - Discharge Plan Condition: Good Disposition: HOME Prescriptions: Azithromycin TAB* [Zithromax TAB (Z-FAVIAN) 250 mg #6 tabs] 4 tab PO ONCE #4 each Ondansetron ODT TAB* [Zofran 4 MG Odt TAB*] 4 mg PO Q6H PRN #12 tab.odt PRN Reason: Nausea Patient Education Materials: Influenza (ED), Dysuria (ED) Referrals: [facility] [Outside] Additional Instructions: Schedule a follow up appointment with [facility] in 2-3 days Zofran as directed Increase fluids Return to ER if symptoms change or worsen - Billing Disposition and Condition Condition: GOOD Disposition: Home
[2019-10-16] MEDS ORDERED: Al Hydrox/Mg Hydrox/Simet LIQ* 30 ML UDC PO ONE (13:46)
[2019-10-16] MEDS ORDERED: Lidocaine 2% VISCOUS* 15 ML UDC PO ONE (13:46)
[2019-10-16 14:47] VITALS: BP 114/58
[2019-10-17 12:32] LABS: Chlamydia trachomatis NAA Positive (Negative); Neisseria gonorrhoeae (GC) NAA Negative (Negative)
--- NOTE | 2019-10-17 13:57 | ED ---
Imaging and Labs Follow Up Follow Up Type: Labs/Cultures Labs/Culture Result: culture positive for chlamydia. Patient Communication/Plan: sent script for azithromycin 1 gram. left vm about medication and to call for results Provider Diagnoses: Chlamydia
== END 2019-10-16 14:46 | disposition home or self-care (01) ==
LOC: ED 11:09
DX: J10.1 Influenza due to other identified influenza virus with other respiratory manifestations (principal); R30.0 Dysuria; R11.2 Nausea with vomiting, unspecified; A74.9 Chlamydial infection, unspecified; J45.909 Unspecified asthma, uncomplicated; Z79.51 Long term (current) use of inhaled steroids; F17.210 Nicotine dependence, cigarettes, uncomplicated
CPT/HCPCS: 81003; 81015; 87086; 87491; 87591; 99283; A9270-GY